=== PATIENT | male | born 1995 | race Caucasian/White ===

== ENCOUNTER 2020-08-11 15:50 | Emergency (ER) | payer OTHER ==
[~2020-08-11] VITALS: Ht 175.3 cm; Wt 76.2 kg
[~2020-08-11 15:50] MED LIST: TOPI200T7 PO
[2020-08-11 15:54] VITALS: BP 126/67
--- NOTE | 2020-08-11 16:12 | NUR ---
LABS DRAWN AND GIVEN TO PHU ADAMS TO BE PROCESSED.
--- NOTE | 2020-08-11 16:19 | NUR ---
25 Y/O MALE C/O CONSTANT CHEST PAIN SINCE YESTERDAY 01/14 . PT REPORTS PRESSURE AND STABBING RADIATES TO LEFT ARM , LABS WERE DRAWN-RESULTS PENDING X 1 WEEK FROM LOCAL URGENT CARE, PER URGENT CARE VISIT LAST WEEK EKG ABNORMAL. NO ADDITIONAL STRESS FACTORS IN HIS LIFE AT THIS TIME. PT ALSO REPORTS NAUSEA, VOMITING AND HEADACHE. PT REPORTS NONPRODUCTIVE COUGH, AND SOB. PT REPORTS HX OF ASTHMA BUT HAS NOT HAD ANY ASTHMA MEDS SINCE CHILDHOOD. DENIES BLURRED VISION . PMH: ASTHMA, MOTHER HAD [place] X2YRS NKA
--- NOTE | 2020-08-11 16:19 | NUR ---
PT PLACED ON PULSE OX AND 3 LEAD ECG.
--- NOTE | 2020-08-11 16:30 | NUR ---
CARA COLLINS AT BEDSIDE EVALUATING PT.
[2020-08-11] MEDS ORDERED: KETOROLAC 60 MG/2 ML VIAL IM ONE (16:35)
[2020-08-11] MEDS ORDERED: ONDANSETRON 4 MG TAB PO ONE (16:40)
[2020-08-11] MEDS ORDERED: ONDANSETRON 4 MG/2 ML VIAL IVP ONE (16:45)
[2020-08-11] MEDS ORDERED: KETOROLAC 30 MG/ML VIAL IVP ONE (16:45)
[2020-08-11 17:01] LABS: BASOPHILS % (AUTO) 0.5 % (0.0-2.0); EOSINOPHILS # (AUTO) 0.1 K/uL (0-0.4); EOSINOPHILS % (AUTO) 1.7 % (0.0-4.0); HEMATOCRIT 46.9 % (36-52); LYMPHOCYTES % (AUTO) 27.5 % (20.5-51.1); MEAN CORPUSCULAR HEMOGLOBIN 32 pg (27-31); MEAN CORPUSCULAR HGB CONC 34 g/dL (33-37); MEAN CORPUSCULAR VOLUME 93.1 fL (80-94); MONOCYTES # (AUTO) 0.5 K/uL (0.8-1.0); MONOCYTES % (AUTO) 6.9 % (1.7-9.3); NEUTROPHILS # (AUTO) 4.5 K/uL (1.8-7.7); NEUTROPHILS % (AUTO) 63.4 % (42.2-75.2); PLATELET COUNT (AUTO) 305 K/uL (140-450); RED BLOOD CELL COUNT(AUTO) 5.04 MIL/uL (4.20-6.10); RED CELL DISTRIBUTION WIDTH 12.9 % (11.6-13.7); WHITE BLOOD COUNT (AUTO) 7.1 K/uL (4.8-10.8)
--- NOTE | 2020-08-11 17:04 | NUR ---
PT UNABLE TO VOID AT THIS TIME. PT GIVEN A URINAL AT BEDSIDE.
[2020-08-11 17:22] LABS: ALBUMIN 4.4 g/dL (3.4-5.0); ANION GAP 9.5 (8-16); CARBON DIOXIDE 29.4 mmol/L (21-32); POTASSIUM 3.9 mmol/L (3.5-5.1); TOTAL BILIRUBIN 0.6 mg/dL (0.0-1.0)
[2020-08-11] MEDS ORDERED: NAPR-54 PO (17:39)
[2020-08-11] MEDS ORDERED: ONDA4TAB PO (17:39)
--- NOTE | 2020-08-11 17:42 | NUR ---
NADR, PT REPORTS 3/10 PAIN AND DENIES NAUSEA AT THIS TIME.
--- NOTE | 2020-08-11 17:43 | NUR ---
PT GIVEN WATER, STILL UNABLE TO VOID AT THIS TIME.
[2020-08-11] MEDS ORDERED: ALBU0.0912 IH (18:36)
[2020-08-11 18:45] VITALS: BP 100/52
--- NOTE | 2020-08-11 18:46 | NUR ---
Patient discharged with v/s stable. Written and verbal after care instructions given and explained. Patient alert, oriented and verbalized understanding of instructions. Ambulatory with steady gait. All questions addressed prior to discharge. ID band removed. Patient advised to follow up with PMD. Rx of naproxen 500mg po bid prn pain, xofran 4mg po q8h prn n/v, and ventolin inh q6h prn sob given. Patient educated on indication of medication including possible reaction and side effects. Opportunity to ask questions provided and answered.
== END 2020-08-11 18:46 | disposition home or self-care (01) ==
LOC: MED 15:50
DX: R07.89 Other chest pain (principal); Z79.899 Other long term (current) drug therapy
CPT/HCPCS: 36415; 71045; 80053; 85025; 93005; 96374; 96375; 99285; J1885; J2405